=== PATIENT | male | born 1985 | race Caucasian/White ===

== ENCOUNTER 2016-11-04 18:48 | Emergency (ER) | payer OTHER ==
[2016-11-04 18:28] LABS: URINE SOURCE CLEAN CATCH
[2016-11-04 18:36] LABS: URINE APPEARANCE CLOUDY; URINE BILIRUBIN NEG (NEG); URINE BLOOD NEG (NEG); URINE COLOR YELLOW; URINE GLUCOSE NEG (NEG); URINE KETONE NEG (NEG); URINE LEUKOCYTE ESTERASE 2+ (NEG); URINE NITRATE NEG (NEG); URINE PH 6.5 (5-8); URINE PROTEIN 1+ (NEG); URINE SPECIFIC GRAVITY 1.032 (1.003-1.035)
[2016-11-04 18:38] LABS: CULTURE INDICATED? YES; URINE BACTERIA AUWI NEG (NEGATIVE); URINE SQUAMOUS EPITHELIAL CELL NONE SEEN /[HPF]; UWBCS1 AUWI 100-200 (0-5)
[2016-11-04 18:47] LABS: U HYALINE CASTS AUWI 0-2 /[LPF]; URINE MUCUS PRESENT
[~2016-11-04 18:48] MED LIST: AMOXICILLIN500 M1 PO; CIPRO PO; IBUPROFEN800 MG PO; PYRIDIUM PO; ULTRAM PO
[2016-11-04 18:49] LABS: URINE SPERM PRESENT
[2016-11-07 12:21] LABS: CHLAMYDIA TRACH Not Detected (Not Detected); N GONOR Detected (Not Detected)
== END 2016-11-04 19:30 | disposition home or self-care (01) ==
LOC: CFTX 18:48
PROVIDERS: Nurse Practitioner
DX: R36.9 Urethral discharge, unspecified (principal); F17.210 Nicotine dependence, cigarettes, uncomplicated
CPT/HCPCS: 81003; 87086; 87491; 87591; 96372; 99283; J0696